=== PATIENT | female | born 1990 | race Caucasian/White ===

== ENCOUNTER 2017-11-21 14:52 | Emergency (ER) | payer OTHER ==
[~2017-11-21] VITALS: Ht 165.1 cm; Wt 61.2 kg
[~2017-11-21 14:52] MED LIST: ACYCLOVIR 400400 MG; APAP500; HYDROCORTISONE30 G9; IBUPROFEN 800800 M1; IRON325 PO; MACROBID 100 M100 M2; PERCOCET 10-321 EACH; PRENATAL PO; SENNA PO; VISTARIL 25 MG25 M1 PO; XANAX 0.5 MG0.5 MG
[2017-11-21 15:37] LABS: URINE BILIRUBIN NEGATIVE (Negative); URINE BLOOD NEGATIVE (Negative); URINE CLARITY CLEAR; URINE COLOR YELLOW; URINE GLUCOSE-RANDOM* NEGATIVE (Negative); URINE KETONES NEGATIVE (Negative); URINE LEUKOCYTES-REFLEX NEGATIVE (Negative); URINE NITRITE-REFLEX NEGATIVE (Negative); URINE PROTEIN (DIPSTICK) NEGATIVE (Negative); URINE UROBILINOGEN 0.2 E.U./dl (0.2-1.0)
[2017-11-21 16:32] LABS: ABSOLUTE NEUTROPHILS 3.2 thou/uL (1.4-8.2); BASOPHILS 0.6 % (0.0-2.0); EOSINOPHILS 1.1 % (0.0-3.0); HEMATOCRIT 38.8 % (37.0-47.0); HEMOGLOBIN 13.1 gm/dL (12.0-15.0); LYMPHOCYTES 39.5 % (24.0-44.0); MCH 29.7 pg (26.0-34.0); MCHC 33.8 g/dL (28.0-37.0); MONOCYTES 9.7 % (1.0-8.0); PLATELET COUNT 232 thou/uL (150-400); POLYS 49.1 % (36.0-66.0); RDW 12.7 % (10.5-14.5); WBC 6.6 thou/uL (4.0-11.0)
[2017-11-21 16:42] LABS: CALCIUM 9.1 mg/dL (8.5-10.1); CREATININE 0.6 mg/dL (0.6-1.0)
[2017-11-21 16:47] LABS: TOTAL PROTEIN 7.2 g/dL (6.4-8.2)
[2017-11-21] MEDS ORDERED: ONDANSETRON HCL4 M2 PO (20:45)
[2017-11-21] MEDS ORDERED: HYDROCODONE-AP1 EAC6 PO (20:45)
[2017-11-21 20:59] VITALS: BP 113/77
== END 2017-11-21 20:59 | disposition home or self-care (01) ==
LOC: ER 14:52
PROVIDERS: Physician Assistant
DX: R11.2 Nausea with vomiting, unspecified (principal); R10.31 Right lower quadrant pain; Z88.8 Allergy status to other drugs, medicaments and biological substances

== ENCOUNTER 2017-12-15 13:33 | Emergency (ER) | payer OTHER ==
[~2017-12-15] VITALS: Ht 165.1 cm; Wt 58.1 kg
[~2017-12-15 13:33] MED LIST changes: +HYDROCODONE-AP1 EAC6 PO; +ONDANSETRON HCL4 M2 PO
[2017-12-15 13:34] VITALS: BP 131/87
[2017-12-15] MEDS ORDERED: ALPRAZOLAM 0.0.25 M1 PO (14:17)
[2017-12-15] MEDS ORDERED: ROBAXIN 750 MG750 M1 PO (14:17)
[2017-12-15] MEDS ORDERED: IBUPROFEN 800800 M1 PO (14:17)
[2017-12-15 14:21] LABS: URINE BILIRUBIN NEGATIVE (Negative); URINE BLOOD NEGATIVE (Negative); URINE CLARITY CLEAR; URINE COLOR YELLOW; URINE GLUCOSE-RANDOM* NEGATIVE (Negative); URINE KETONES NEGATIVE (Negative); URINE LEUKOCYTES-REFLEX NEGATIVE (Negative); URINE NITRITE-REFLEX NEGATIVE (Negative); URINE PROTEIN (DIPSTICK) NEGATIVE (Negative); URINE UROBILINOGEN 0.2 E.U./dl (0.2-1.0)
[2017-12-15 14:31] LABS: AMP/METHAMP Negative (Negative); BARBITURATES Negative (Negative); BENZODIAZEPINES POSITIVE (Negative); COCAINE Negative (Negative); METHADONE Negative (Negative); OPIATES Negative (Negative); PCP Negative (Negative)
[2017-12-15] MEDS ORDERED: MOBIC15 MG PO (15:18)
== END 2017-12-15 15:30 | disposition home or self-care (01) ==
LOC: ER 13:33
PROVIDERS: Physician Assistant
DX: S09.90XA Unspecified injury of head, initial encounter (principal); M54.9 Dorsalgia, unspecified; F41.9 Anxiety disorder, unspecified; Z88.8 Allergy status to other drugs, medicaments and biological substances; W18.2XXA Fall in (into) shower or empty bathtub, initial encounter; Y93.89 Activity, other specified; Y92.89 Other specified places as the place of occurrence of the external cause; Y99.8 Other external cause status